=== PATIENT | female | born 1990 | race American Indian/Alaskan Native ===

== ENCOUNTER 2018-08-21 18:14 | Emergency (ER) | payer MEDICAID ==
[2018-08-21 18:23] VITALS: BMI 46.5
--- NOTE | 2018-08-21 18:52 | ED PDOC ---
Arrival/HPI - General Chief Complaint: Abdominal Pain Historian: Patient - History of Present Illness Narrative History of Present Illness (Text): 08/21/18 18:45 27 yo F w/ h/o prior ectopic , c/o intermittent lower abd pain x 1.5 mo, states that the last time she had similar episode of this kind of pain, she had an ectopic . Patient concerned that she may be , however she states that her LMP was on 08/14, she is sexually active, uses no protection and did not do a HPT. Of note, patient adds that she today noticed white d/c. Otherwise reports no fever, chills, vomiting, diarrhea, changes in appetite, urinary symptoms, abdominal surgery. Past Medical History - Genitourinary/Gynecological Other/Comment: ectopic - Psychiatric Hx Substance Use: No - Anesthesia Hx Anesthesia: No Family/Social History Family/Social History: No Known Family HX Smoking Status: Never Smoked Hx Alcohol Use: No Hx Substance Use: No Allergies/Home Meds Allergies/Adverse Reactions: Allergies No Known Allergies Allergy (Verified 08/21/18 18:23) Review of Systems - Review of Systems Constitutional: absent: Fatigue, Fevers Cardiovascular: absent: Chest Pain, Palpitations Gastrointestinal: Abdominal Pain. absent: Diarrhea, Nausea, Vomiting Genitourinary Female: Vaginal Discharge. absent: Dysuria, Frequency, Hematuria Musculoskeletal: absent: Arthralgias, Back Pain, Neck Pain Skin: absent: Rash, Skin Lesions Physical Exam Temperature: Afebrile Blood Pressure: Normal Pulse: Regular Respiratory Rate: Normal Appearance: Positive for: Well-Appearing, Non-Toxic, Comfortable Pain Distress: None Mental Status: Positive for: Alert and Oriented X 3 - Systems Exam Head: Present: Atraumatic, Normocephalic Pupils: Present: PERRL Extroacular Muscles: Present: EOMI Conjunctiva: Present: Normal Mouth: Present: Moist Mucous Membranes Neck: Present: Normal Range of Motion Respiratory/Chest: Present: Clear to Auscultation, Good Air Exchange. No: Respiratory Distress, Accessory Muscle Use Cardiovascular: Present: Regular Rate and Rhythm, Normal S1, S2. 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 No: Vaginal Bleeding, Vaginal Lesions, Adenexal Tenderness, Adenexal Mass, Cervical Motion Tendernes Back: Present: Normal Inspection Upper Extremity: Present: Normal Inspection. No: Cyanosis, Edema Lower Extremity: Present: Normal Inspection. No: Edema Neurological: Present: GCS=15, CN II-XII Intact, Speech Normal Skin: Present: Warm, Dry, Normal Color. No: Rashes Psychiatric: Present: Alert, Oriented x 3, Normal Insight, Normal Concentration Medical Decision Making ED Course and Treatment: 08/21/18 18:52 Plan : - [facility] [place] 08/21/18 19:39 [facility] [place] (-). Diagnosis of bacterial vaginosis d/w the patient. Patient instructed to follow-up with pmd or shorthand teacher in 1-2 days without fail, referral to GI given to the patient as well. Advised to take medication as prescribed. Return to the emergency room at any time for any new or worsening symptoms. Patient states she fully agrees with and understands discharge instructions. States that she agrees with the plan and disposition. Verbalized and repeated discharge instructions and plan. I have given the patient opportunity to ask any additional questions. - PA / BIBLIOGRAPHIC SERVICES SPECIALIST / Resident Statement MD/DO has reviewed & agrees with the documentation as recorded. Disposition/Present on Arrival - Present on Arrival Any Indicators Present on Arrival: No History of DVT/PE: No History of Uncontrolled Diabetes: No Urinary Catheter: No History of Decub. Ulcer: No History Surgical Site Infection Following: None - Disposition Have Diagnosis and Disposition been Completed?: Yes Diagnosis: Abdominal pain, Bacterial vaginosis Disposition: HOME/ ROUTINE Disposition Time: 19:30 Patient Plan: Discharge Condition: STABLE Discharge Instructions (ExitCare): Bacterial Vaginosis (DC), Acute Abdomen (Belly Pain) Additional Instructions: Thank you for letting us take care of you today. You were treated for abdominal pain, bacterial vaginosis. The emergency medical care you received today was directed at your acute symptoms. If you were prescribed any medication, please fill it and take as directed. It may take several days for your symptoms to resolve. Return to the Emergency Department if your symptoms worsen, do not improve, or if you have any other problems. Please contact your doctor and shorthand teacher in 2 days for re-evaluation and follow up / or call one of the physicians/clinics you have been referred to that are listed on the Patient Visit Information form that is included in your discharge packet. Bring any paperwork you were given at discharge with you along with any medications you are taking to your follow up visit. Our treatment cannot replace ongoing medical care by a primary care provider (PCP) outside of the emergency department. Thank you for allowing the [facility] team to be part of your care today. If you had a STD test done : We will call you regarding any positive results Prescriptions: Fluconazole [Diflucan] 150 mg PO ONCE #1 tab Metronidazole [Flagyl] 500 mg PO BID #14 tab Referrals: Mariano Robles PA-C [Primary Care Provider] - Follow up with primary Hilario Eric MD [Medical Doctor] - Follow up with primary Forms: [employer] (Kosovan)
[2018-08-21 19:04] VITALS: BP 143/91; PULSE 87; RESP 16; TEMP 97.6; O2SAT 100
== END 2018-08-21 20:20 | disposition home or self-care (01) ==
LOC: ED 18:14
DX: N76.0 Acute vaginitis (principal); B96.89 Other specified bacterial agents as the cause of diseases classified elsewhere; R10.9 Unspecified abdominal pain

== ENCOUNTER 2018-09-11 16:38 | Emergency (ER) | payer MEDICAID ==
[2018-09-11 16:54] VITALS: BMI 41.5
[2018-09-11 16:58] VITALS: TEMP 98; O2SAT 100
[2018-09-11] MEDS ORDERED: Sodium Chloride 0.9% 1,000 ML IV STA ×2 (16:59→19:22)
--- NOTE | 2018-09-11 17:20 | ED PDOC ---
Arrival/HPI - General Chief Complaint: High Blood Sugar Historian: Patient - History of Present Illness Narrative History of Present Illness (Text): 09/11/18 17:17 28 y/o female, pmh including IDDM, nkda, c/o lt. eye redness x 2 days. Pt. stated that she has left eye redness and discomfort x 2 days, no fall or trauma, been rubbing, progressed to the headache, no numbness or tingling, no change in vision, stated that she has headache from the conjunctivitis, incidentally noted that she has elevated glucose 400s on FS which she just ate. Pt. has no numbness or tingling, no nausea/vomiting, no eye surgery, no palpitation, no rash, no diarrhea, no neck stiffness, no other medical or psychological complaints. Past Medical History - Provider Review Nursing Documentation Reviewed: Yes - Cardiac Hx Cardiac Disorders: No - Pulmonary Hx Respiratory Disorders: No - Neurological Hx Neurological Disorder: No - HEENT Hx HEENT Disorder: No - Endocrine/Metabolic Hx Endocrine Disorders: Yes Hx Diabetes Mellitus Type 2: Yes - Genitourinary/Gynecological Other/Comment: ectopic - Psychiatric Hx Substance Use: No - Anesthesia Hx Anesthesia: No Family/Social History - Physician Review Nursing Documentation Reviewed: Yes Family/Social History: Unknown Family HX Smoking Status: Never Smoked Hx Alcohol Use: No Hx Substance Use: No Allergies/Home Meds Allergies/Adverse Reactions: Allergies No Known Allergies Allergy (Verified 09/11/18 16:57) Review of Systems - Review of Systems Constitutional: absent: Fatigue, Fevers Eyes: Other (lt. eye conjunctivitis). absent: Vision Changes Respiratory: absent: SOB, Cough Cardiovascular: absent: Chest Pain Gastrointestinal: absent: Abdominal Pain, Diarrhea, Nausea, Vomiting Musculoskeletal: absent: Arthralgias, Back Pain Skin: absent: Rash, Pruritis Neurological: Headache. absent: Dizziness Endocrine: absent: Diaphoresis Psychiatric: absent: Anxiety, Depression, Suicidal Ideation Physical Exam Vital Signs Reviewed: Yes Vital Signs Temp Pulse Resp BP Pulse Ox 09/11/18 16:57 98.0 F 99 H 18 137/84 100 Temperature: Afebrile Blood Pressure: Normal Pulse: Regular Respiratory Rate: Normal Appearance: Positive for: Well-Appearing, Non-Toxic, Comfortable Pain Distress: Moderate Mental Status: Positive for: Alert and Oriented X 3 - Systems Exam Head: Present: Atraumatic, Normocephalic, Other (no temporal artery tenderness and no jaw claudication). No: Tenderness, Contusion, Swelling, Ecchymosis, Abrasion, Laceration Pupils: Present: PERRL, Other (Eyes: bilateral w/o correction 20/20, lt. eye w/o correction 20/20 vs. rt. eye w/o correction 20/20, lt. intraocular pressure 18, lt. conjunctivitis, lt. eye examined with fluosein strip show no uptake with negative rakel sign and no corneal laceration/abrasion/ulcers, bilateral uppper and lower eyelids everted with no visible foreign bodies, Full range extraocular movement without limitation. ) Extroacular Muscles: Present: EOMI Conjunctiva: Present: Normal Ears: Present: NORMAL TM, Normal Canal. No: Erythema Mouth: Present: Moist Mucous Membranes Neck: Present: Normal Range of Motion Respiratory/Chest: Present: Clear to Auscultation, Good Air Exchange. No: Respiratory Distress, Accessory Muscle Use Cardiovascular: Present: Regular Rate and Rhythm, Normal S1, S2. No: Murmurs Abdomen: No: Tenderness, Distention, Peritoneal Signs Back: Present: Normal Inspection Upper Extremity: Present: Normal Inspection. No: Cyanosis, Edema Lower Extremity: Present: Normal Inspection. No: Edema Neurological: Present: GCS=15, CN II-XII Intact, Speech Normal, Motor Func Grossly Intact, Normal Cerebellar Funct, Gait Normal, Memory Normal Skin: Present: Warm, Dry, Normal Color. No: Rashes Psychiatric: Present: Alert, Oriented x 3, Normal Insight, Normal Concentration Medical Decision Making ED Course and Treatment: 09/11/18 17:22 -Labs -CT head -IV reglan/benadryl -Observe and reassess 09/11/18 19:10 -Urine hcg is negative -UA show no UTI -Labs show no acute findings except glucose 346 but fluid given and repeat fs is 289 -CT head Normal CT of the Head. -Ciloxin ordered. -Pt. feels well and much better, asymptomatic, no headache or eye discomfort. 09/11/18 19:31 -Discharge home with ciloxin, continue your Diabete medications, motrin, bed rest, follow up with your own pmd and opthalmologist/retort press operator within 2 days, return to the ER for any new or worsening signs or symptoms. - RAD Interpretation Radiology Orders: 09/11/18 16:58 HEAD W/O CONTRAST [CT] Stat Date of service: 09/11/2018 PROCEDURE: CT HEAD WITHOUT CONTRAST. HISTORY: headache x 2 days COMPARISON: None available. TECHNIQUE: Axial computed tomography images were obtained through the head/brain without intravenous contrast. Radiation dose: Total exam DLP = 761.66 mGy-cm. This CT exam was performed using one or more of the following dose reduction techniques: Automated exposure control, adjustment of the mA and/or kV according to patient size, and/or use of iterative reconstruction technique. FINDINGS: HEMORRHAGE: No intracranial hemorrhage. BRAIN: No mass effect or edema. No atrophy or chronic microvascular ischemic changes. VENTRICLES: Unremarkable. No hydrocephalus. CALVARIUM: Unremarkable. PARANASAL SINUSES: Unremarkable as visualized. No significant inflammatory changes. MASTOID AIR CELLS: Unremarkable as visualized. No inflammatory changes. OTHER FINDINGS: None. IMPRESSION: Normal CT of the Head. Template Layout Worker: Radiologist - Medication Orders Current Medication Orders: Sodium Chloride (Sodium Chloride 0.9%) 1,000 mls @ 999 mls/hr IV .Q1H1M STA Stop: 09/11/18 17:59 - PA / PSYCHOLOGICAL OPERATIONS OFFICER / Resident Statement / has reviewed & agrees with the documentation as recorded. Disposition/Present on Arrival - Present on Arrival Any Indicators Present on Arrival: No History of DVT/PE: No History of Uncontrolled Diabetes: No Urinary Catheter: No History of Decub. Ulcer: No History Surgical Site Infection Following: None - Disposition Have Diagnosis and Disposition been Completed?: Yes Diagnosis: Conjunctivitis, Headache, Hyperglycemia Disposition Time: 19:12 Patient Plan: Discharge Patient Problems: Current Active Problems Problem Status Onset Conjunctivitis Acute Headache Acute Hyperglycemia Acute Condition: IMPROVED Additional Instructions: -Discharge home with ciloxin, continue your Diabete medications, motrin, bed rest, follow up with your own pmd and opthalmologist/retort press operator within 2 days, return to the ER for any new or worsening signs or symptoms. Prescriptions: Ciprofloxacin 0.3% [Ciloxan 0.3% Ophth SOLN] 2 drop OS Q4 #1 bottle Ibuprofen [Motrin] 600 mg PO QID PRN #30 tab PRN Reason: Other Referrals: Asael Arguelles MD [Staff Provider] - Follow up with primary Don Felix MD [Staff Provider] - Follow up with primary Geoffrey Schneider MD [Staff Provider] - Follow up with primary Sharon Ng MD [Medical Doctor] - Follow up with primary Forms: [employer] (Faroese), WORK NOTE
[2018-09-11] MEDS ORDERED: DiphenhydrAMINE 50 mg/ml Inj IVP STA (17:23)
[2018-09-11 18:19] LABS: BASO # 0.02 K/mm3 (0.0-2.0); BASO % 0.2 % (0.0-3.0); EOS # 0.2 (0.0-0.7); EOS % 1.5 % (1.5-5.0); HEMOGLOBIN 13.5 g/dL (12.0-16.0); LYMPH # 3.3 (1.2-3.4); LYMPH % 33.6 % (22.0-35.0); MEAN CELL VOLUME 83.7 fl (80.0-105.0); MEAN CORPUSCULAR HEMOGLOBIN 28.7 pg (25.0-35.0); MEAN CORPUSCULAR HGB CONC 34.3 g/dl (31.0-37.0); MEAN PLATELET VOLUME 11.5 fl (7.0-11.0); MONO # 0.7 (0.1-0.6); MONO % 6.7 % (1.0-6.0); RBC 4.71 10^6/uL (3.5-6.1); RED CELL DISTRIBUTION WIDTH 13.2 % (11.5-14.5); URINE BILIRUBIN NEGATIVE (NEGATIVE); URINE BLOOD NEGATIVE (NEGATIVE); URINE GLUCOSE (UA) >=1000 mg/dL (NEGATIVE); URINE LEUKOCYTE ESTERASE NEGATIVE Leu/uL (NEGATIVE); URINE PROTEIN NEGATIVE mg/dL (<30 mg/dL); URINE UROBILINOGEN 0.2 E.U./dL (<1 E.U./dL)
[2018-09-11 18:24] LABS: URINE APPEARANCE CLEAR (CLEAR); URINE COLOR YELLOW (YELLOW)
[2018-09-11 18:49] LABS: ALB/GLOB RATIO 1.1 (1.1-1.8); ALBUMIN 4.4 g/dL (3.0-4.8); ALT/SGPT 7 U/L (7-56); AST/SGOT 29 U/L (14-36); BLOOD UREA NITROGEN 13 mg/dL (7-21); CALCIUM 9.7 mg/dL (8.4-10.5); GFR NON-AFRICAN AMERICAN > 60
--- NOTE | 2018-09-11 18:54 | CT ---
Date of service: 09/11/2018 PROCEDURE: CT HEAD WITHOUT CONTRAST. HISTORY: headache x 2 days COMPARISON: None available. TECHNIQUE: Axial computed tomography images were obtained through the head/brain without intravenous contrast. Radiation dose: Total exam DLP = 761.66 mGy-cm. This CT exam was performed using one or more of the following dose reduction techniques: Automated exposure control, adjustment of the mA and/or kV according to patient size, and/or use of iterative reconstruction technique. FINDINGS: HEMORRHAGE: No intracranial hemorrhage. BRAIN: No mass effect or edema. No atrophy or chronic microvascular ischemic changes. VENTRICLES: Unremarkable. No hydrocephalus. CALVARIUM: Unremarkable. PARANASAL SINUSES: Unremarkable as visualized. No significant inflammatory changes. MASTOID AIR CELLS: Unremarkable as visualized. No inflammatory changes. OTHER FINDINGS: None. IMPRESSION: Normal CT of the Head.
[2018-09-11] MEDS ORDERED: Insulin Regular 1 UNITS/0.01 ML ML SC STA (19:07)
[2018-09-11] MEDS ORDERED: Ciprofloxacin 0.3% OPTH SOLN OS STA (19:08)
[2018-09-11 20:32] VITALS: BP 112/74; PULSE 68; RESP 17
== END 2018-09-11 20:31 | disposition home or self-care (01) ==
LOC: ED 16:38
DX: E11.65 Type 2 diabetes mellitus with hyperglycemia (principal); R51 Headache; H10.9 Unspecified conjunctivitis
CPT/HCPCS: 70450; 80053; 81003; 81025; 83735; 85025; 96361; 96374; 96375; 99284; J1200; J2765; J7030

== ENCOUNTER 2018-11-01 17:40 | Emergency (ER) | payer MEDICAID ==
[2018-11-01 17:40] VITALS: BMI 41.5
[2018-11-01 18:37] VITALS: RESP 18; TEMP 98.5; O2SAT 99
--- NOTE | 2018-11-01 18:50 | ED PDOC ---
Arrival/HPI - General Chief Complaint: Abnormal Skin Integrity Time Seen by Provider: 11/01/18 18:33 Historian: Patient - History of Present Illness Narrative History of Present Illness (Text): 28 year old female with past medical history of diabetes presents to the emergency department complaining of pruritus x 1 month. Pruritus is mainly located to the hands and feet with occasional spread to arms and legs. Denies any known allergies, recent changes in diet, lotions, or detergent. No recent travel. States she is struggling to keep her glucose levels under control. Denies fever, chills, SOB, rash, chest pain, abdominal pain, nausea, vomiting, urinary symptoms, or any other associated symptoms. Past Medical History - Provider Review Nursing Documentation Reviewed: Yes - Infectious Disease Hx of Infectious Diseases: None - Reproductive Menopause: No - Cardiac Hx Cardiac Disorders: No - Pulmonary Hx Respiratory Disorders: No - Neurological Hx Neurological Disorder: No - HEENT Hx HEENT Disorder: No - Endocrine/Metabolic Hx Endocrine Disorders: Yes Hx Diabetes Mellitus Type 2: Yes - Genitourinary/Gynecological Other/Comment: ectopic - Psychiatric Hx Substance Use: No - Anesthesia Hx Anesthesia: No Family/Social History - Physician Review Nursing Documentation Reviewed: Yes Family/Social History: No Known Family HX Smoking Status: Never Smoked Hx Alcohol Use: No Hx Substance Use: No Allergies/Home Meds Allergies/Adverse Reactions: Allergies No Known Allergies Allergy (Verified 09/11/18 16:57) Review of Systems - Review of Systems Constitutional: Normal. absent: Fevers Eyes: Normal. absent: Vision Changes ENT: Normal. absent: Sore Throat, Sinus Congestion Respiratory: Normal. absent: SOB, Cough Cardiovascular: Normal. absent: Chest Pain, Palpitations, Syncope Gastrointestinal: Normal. absent: Abdominal Pain, Nausea, Vomiting Genitourinary Female: Normal. absent: Dysuria, Frequency Musculoskeletal: Normal. absent: Back Pain, Neck Pain Skin: Other (pruritus ) Neurological: Normal. absent: Headache, Dizziness Physical Exam Vital Signs Reviewed: Yes Vital Signs Temp Pulse Resp BP Pulse Ox 11/01/18 18:30 98.5 F 85 18 151/104 H 99 Temperature: Afebrile Blood Pressure: Hypertensive Pulse: Regular Respiratory Rate: Normal Appearance: Positive for: Well-Appearing, Non-Toxic, Comfortable Pain Distress: None Mental Status: Positive for: Alert and Oriented X 3 - Systems Exam Head: Present: Atraumatic, Normocephalic Pupils: Present: PERRL Extroacular Muscles: Present: EOMI Conjunctiva: Present: Normal Mouth: Present: Moist Mucous Membranes Neck: Present: Normal Range of Motion Respiratory/Chest: Present: Clear to Auscultation, Good Air Exchange. No: Respiratory Distress, Accessory Muscle Use Cardiovascular: Present: Regular Rate and Rhythm, Normal S1, S2. No: Murmurs Abdomen: No: Tenderness, Distention, Peritoneal Signs Back: Present: Normal Inspection Upper Extremity: Present: Normal ROM, NORMAL PULSES, Neurovascularly Intact, Capillary Refill < 2s. No: Cyanosis, Edema, Temperature Abnormalties Lower Extremity: Present: NORMAL PULSES, Normal ROM, Capillary Refill < 2 s. No: Edema, Temperature Abnormalties, Neurovascularly Intact Neurological: Present: GCS=15, CN II-XII Intact, Speech Normal Skin: Present: Warm, Dry, Other (small amount of white scaling to palms of hand and soles of feet; otherwise no rash or erythema) Psychiatric: Present: Alert, Oriented x 3, Normal Insight, Normal Concentration, Normal Affect, Normal Mood Medical Decision Making ED Course and Treatment: Initial Plan: * Benadryl, Pepcid * Fingerstick * Repeat BP Repeat BP improved from triage. 11/01/18 20:00 Blood sugar elevated, offered patient further workup to rule out DKA and control glucose, which she declined. Will sign out AMA. States she will followup with PMD and dermatology. Will treat for presumed tinea infection. The patient is choosing to leave against medical advice. I have personally explained to the patient that choosing to do so may result in permanent bodily harm, disability, or . I have discussed at great length that without further evaluation and monitoring there may be unforeseen circumstances and/or deterioration causing permanent bodily harm or as a result of their choice. The patient is alert, oriented, and shows the mental capacity to make clear decisions regarding the patients health care at this time. The patient continues to wish to leave against medical advice. In light of the patients decision to leave against medical advice, follow-up has been arranged and the patient is aware of the importance to following up as instructed. The patient has been advised that they should return to the emergency room immediately if they change their mind at any time, or if their condition begins to change or worsen in any way. - Medication Orders Current Medication Orders: Discontinued Medications Diphenhydramine HCl (Benadryl) 25 mg PO STAT STA Stop: 11/01/18 18:41 Famotidine (Pepcid) 20 mg PO STAT STA Stop: 11/01/18 18:41 Disposition/Present on Arrival - Present on Arrival Any Indicators Present on Arrival: No History of DVT/PE: No History of Uncontrolled Diabetes: No Urinary Catheter: No History of Decub. Ulcer: No History Surgical Site Infection Following: None - Disposition Have Diagnosis and Disposition been Completed?: No Diagnosis: Tinea, Left against medical advice, Hyperglycemia Disposition: AGAINST MEDICAL ADVICE Disposition Time: 20:00 Condition: STABLE Discharge Instructions (ExitCare): Ringworm, Athlete's Foot, and Jock Itch, H yperglycemia, Adult, Leaving Against Medical Advice Additional Instructions: Ketoconazole to hands and feet twice daily for 3 weeks Urrutia Butter lotion daily to elbows and knees Luke warm baths Followup with primary doctor within 2 days for hyperglycemia Followup with [employer] revenue officer within 2 days Return to ER with any new/worsening symptoms or if you wish to be reevaluated Prescriptions: Ketoconazole 2% Cr [Nizoral] 1 appl TD Q12H #2 tube Referrals: Gab Olivares MD [Family Provider] - Follow up with primary Desi Nowak MD [Staff Provider] - Follow up with primary Forms: [employer] (Palestinian)
[2018-11-01 19:45] VITALS: BP 139/87; PULSE 88
== END 2018-11-01 20:35 | disposition left against medical advice (07) ==
LOC: ED 17:40
DX: E11.65 Type 2 diabetes mellitus with hyperglycemia (principal); B35.9 Dermatophytosis, unspecified

== ENCOUNTER 2018-11-12 10:23 | Emergency (ER) | payer MEDICAID ==
[2018-11-12 10:23] VITALS: BMI 41.5
[2018-11-12 10:42] VITALS: RESP 18
--- NOTE | 2018-11-12 11:10 | ED PDOC ---
Arrival/HPI - General Chief Complaint: Cough, Cold, Congestion Time Seen by Provider: 11/12/18 10:23 Historian: Patient - History of Present Illness Narrative History of Present Illness (Text): 11/12/18 11:08 28 year old female, with past medical history of diabetes, presents to emergency department for cough and ear pressure for the last week and loss of voice over the past several days. Patient reports associated sweats. She also notes fever at the beginning of the week that subsided in the following few days. She states she has been taking sudafed without any significant improvement. Patient denies any headache, chest pain, shortness of breath, abdominal pain, nausea, vomiting, diarrhea, back pain, neck pain, or any other complaints. She also denies any recent travel, sick contact, or tobacco use. Time/Duration: 1 week Symptom Onset: Gradual Symptom Course: Unchanged Activities at Onset: Light Context: Home Past Medical History - Provider Review Nursing Documentation Reviewed: Yes - Infectious Disease Hx of Infectious Diseases: None - Reproductive Menopause: No - Cardiac Hx Cardiac Disorders: No - Pulmonary Hx Respiratory Disorders: No - Neurological Hx Neurological Disorder: No - HEENT Hx HEENT Disorder: No - Endocrine/Metabolic Hx Endocrine Disorders: Yes Hx Diabetes Mellitus Type 2: Yes - Genitourinary/Gynecological Other/Comment: ectopic - Psychiatric Hx Substance Use: No - Anesthesia Hx Anesthesia: No Hx Anesthesia Reactions: No Hx Malignant Hyperthermia: No Family/Social History - Physician Review Nursing Documentation Reviewed: Yes Family/Social History: No Known Family HX Smoking Status: Never Smoked Hx Alcohol Use: No Hx Substance Use: No Allergies/Home Meds Allergies/Adverse Reactions: Allergies No Known Allergies Allergy (Verified 09/11/18 16:57) Home Medications: Home Meds Medication Instructions Recorded Confirmed metFORMIN [glucOPHAGE] 500 mg PO DAILY 11/12/18 11/12/18 Review of Systems - Physician Review All systems were reviewed & negative as marked: Yes - Review of Systems ENT: absent: Sore Throat Respiratory: absent: SOB Physical Exam - Physical Exam Narrative Physical Exam (Text): 11/12/18 11:16 Constitutional: No acute distress, hoarse voice Head: Normocephalic. Atraumatic. Eyes: PERRL. ENT: Bilateral TM erythema and bulging Neck: Supple. Cardiovascular: Regular rate. Chest: No tenderness. Respiratory: Clear to auscultation bilaterally. GI: Soft. Nontender. Nondistended. Back: No CVA tenderness. Musculoskeletal: No tenderness or swelling of extremities. Skin: No rash. Neurologic: Alert, no focal deficit. Vital Signs Reviewed: Yes Vital Signs Temp Pulse Resp BP Pulse Ox 11/12/18 10:37 98.5 F 95 H 18 124/87 98 Temperature: Afebrile Blood Pressure: Normal Pulse: Regular Respiratory Rate: Normal Appearance: Positive for: Well-Appearing, Non-Toxic, Comfortable Pain Distress: None Mental Status: Positive for: Alert and Oriented X 3 Medical Decision Making ED Course and Treatment: 11/12/18 11:29 Impression: 28 year old female presents to emergency department for ear pain and cough for the past week with loss of voice recently. Prior Visits: Patient last seen in emergency department for tinea on 11/01/18. - Scribe Statement The provider has reviewed the documentation as recorded by the Scribe Winnie Benavides All medical record entries made by the Scribe were at my direction and personally dictated by me. I have reviewed the chart and agree that the record accurately reflects my personal performance of the history, physical exam, medical decision making, and the department course for this patient. I have also personally directed, reviewed, and agree with the discharge instructions and disposition. Disposition/Present on Arrival - Present on Arrival Any Indicators Present on Arrival: No History of DVT/PE: No History of Uncontrolled Diabetes: No Urinary Catheter: No History of Decub. Ulcer: No History Surgical Site Infection Following: None - Disposition Have Diagnosis and Disposition been Completed?: Yes Diagnosis: Otitis media Disposition: HOME/ ROUTINE Disposition Time: 11:07 Patient Plan: Discharge Patient Problems: Current Active Problems Problem Status Onset Otitis media Acute Condition: FAIR Discharge Instructions (ExitCare): Ear Infections (Otitis Media) Prescriptions: Amoxicillin/Clavulanate [Augmentin 875 MG-125 MG] 1 tab PO BID #20 tab Forms: Dealo (Uzbek), WORK NOTE
[2018-11-12 11:20] VITALS: BP 121/73; PULSE 86; TEMP 98.3; O2SAT 100
== END 2018-11-12 12:02 | disposition home or self-care (01) ==
LOC: ED 10:23
DX: H66.90 Otitis media, unspecified, unspecified ear (principal)